=== PATIENT | male | born 1940 | race African-American/Black ===

== ENCOUNTER 2017-02-17 23:55 | Emergency (ER) | payer MEDICARE, OTHER ==
[~2017-02-17] VITALS: Ht 170.2 cm; Wt 81.0 kg
[~2017-02-17 23:55] MED LIST: ASPI-1035 PO; LORA0.5T2 PO
[2017-02-18] MEDS ORDERED: MORPHINE SULFATE 4 MG/ML CPJ (NOT FOR IM USE) IV ONE ×2 (00:30→02:15)
[2017-02-18] MEDS ORDERED: ONDANSETRON HCL 4MG/2ML VIAL IV ONE (00:30)
[2017-02-18 00:43] LABS: HEMATOCRIT. 27.8 % (42.0-52.0); HEMOGLOBIN. 8.9 g/dL (14.0-18.0); MEAN CORPUSCULAR HEMOGLOBIN 29.5 pg (28.0-32.0); MEAN CORPUSCULAR HGB CONC 31.9 g/dL (31.0-37.0); MEAN CORPUSCULAR VOLUME 92.5 fL (80.0-94.0); MEAN PLATELET VOLUME 7.3 fl (7.4-10.4); PLATELET 87 x1000/uL (130-400); RED CELL DISTRIBUTION WIDTH 17.3 % (11.6-14.6); WHITE BLOOD COUNT 7.3 x1000/uL (4.5-11.0)
[2017-02-18 00:47] LABS: CHLORIDE 104 mEq/L (98-107); DIFFERENTIAL COMMENT 1; INDEX HEMOLYSI 1 (1-3); INDEX ICTERIC 1 (1-4); INDEX LIPEMIC 1 (1-3)
[2017-02-18 00:52] LABS: ANION GAP 8; CALCIUM 8.4 mg/dL (8.5-10.1); CARBON DIOXIDE 32 mEq/L (21-32); UREA NITROGEN BLOOD 10 mg/dL (7-21); eGFR > 60 mL/min (>60)
[2017-02-18 01:06] LABS: PLATELET ESTIMATE DECREASED
[2017-02-18] MEDS ORDERED: OXYCODONE HCL/ACETAMINOPHEN 5/325MG TABLET PO ONE (01:15)
[2017-02-18 02:09] LABS: CLARITY URINE CLEAR (CLEAR); COLOR URINE YELLOW (YELLOW); GLUCOSE URINE NEGATIVE (NEGATIVE); KETONES URINE NEGATIVE (NEGATIVE); LEUKOCYTE ESTERASE URINE 2+ (NEGATIVE); NITRITE URINE NEGATIVE (NEGATIVE); OCCULT BLOOD URINE 3+ (NEGATIVE); PROTEIN URINE 3+ (NEGATIVE); SPECIFIC GRAVITY URINE 1.018 (1.005-1.030)
[2017-02-18 02:38] LABS: BACTERIA URINE 1+; RBC URINE TNTC /hpf (0-2); SQUAMOUS EPITHELIAL CELL URINE RARE /lpf (RARE/1+); WBC URINE 50-100 /hpf (0-2)
[2017-02-18 03:10] VITALS: BP 130/65
== END 2017-02-18 03:53 | disposition home or self-care (01) ==
LOC: ER 02-18 00:11
DX: R31.9 Hematuria, unspecified (principal); I10 Essential (primary) hypertension; C61 Malignant neoplasm of prostate; F17.200 Nicotine dependence, unspecified, uncomplicated; Z79.82 Long term (current) use of aspirin; Z85.46 Personal history of malignant neoplasm of prostate; Z87.442 Personal history of urinary calculi; Z96.642 Presence of left artificial hip joint
CPT/HCPCS: 36415; 80048; 81001; 85025; 96374; 96375; 96376; 99284; J2270; J2405; A4315

== ENCOUNTER 2017-04-19 00:23 | Inpatient (IN) | payer MEDICARE ==
[~2017-04-19] VITALS: Ht 165.1 cm; Wt 98.0 kg
[2017-04-19] VITALS (17 sets, daily range): BP systolic 139–193; BP diastolic 67–106
[~2017-04-19 00:23] MED LIST changes: -ASPI-1035 PO; +ASPI-1159 PO
[2017-04-19] MEDS ORDERED: METHYLPREDNISOLONE SOD SUCC 125 MG/2 ML VIAL IV STA (01:31)
[2017-04-19] MEDS ORDERED: ALBUTEROL (0.083%) 2.5MG/3ML NEB HHN STA ×2 (01:31→05:25)
[2017-04-19] MEDS ORDERED: ACETAMINOPHEN 325MG TABLET PO STA (01:31)
[2017-04-19] MEDS ORDERED: IPRATROPIUM BROMIDE (0.02%) 0.5MG/2.5ML NEB HHN STA ×2 (01:31→05:25)
[2017-04-19] MEDS ORDERED: PIPERACILLIN/TAZ 3.375G PREMIX 50 ML IV ONE (01:45)
[2017-04-19] MEDS ORDERED: VANCOMYCIN 1 G PREMIX 200 ML IV ONE (01:45)
[2017-04-19] MEDS ORDERED: MAGNESIUM 2 G PREMIX 50 ML IV ONE (01:45)
[2017-04-19] MEDS ORDERED: SODIUM CHLORIDE 0.9% 1000ML BAG (SEPSIS BOLUS) IV ONE (01:45)
[2017-04-19 02:38] LABS: GLUCOSE URINE NEGATIVE (NEGATIVE); KETONES URINE NEGATIVE (NEGATIVE); LEUKOCYTE ESTERASE URINE 1+ (NEGATIVE); NITRITE URINE NEGATIVE (NEGATIVE); OCCULT BLOOD URINE 3+ (NEGATIVE); PROTEIN URINE 4+ (NEGATIVE); SPECIFIC GRAVITY URINE 1.024 (1.005-1.030); UROBILINOGEN URINE 0.2 E.U./dL (0.2-1.0)
[2017-04-19 02:41] LABS: CLARITY URINE CLOUDY (CLEAR); COLOR URINE BLOODY (YELLOW)
[2017-04-19 02:51] LABS: INR 1.2; PROTHROMBIN TIME 12.9 sec
[2017-04-19 02:59] LABS: HEMATOCRIT. 23.1 % (42.0-52.0); HEMOGLOBIN. 7.2 g/dL (14.0-18.0); MEAN CORPUSCULAR HEMOGLOBIN 27.5 pg (28.0-32.0); MEAN CORPUSCULAR VOLUME 88.3 fL (80.0-94.0); MEAN PLATELET VOLUME 8.8 fl (7.4-10.4); PLATELET 112 x1000/uL (130-400); RED BLOOD CELL COUNT 2.61 mill/uL (4.7-6.1); RED CELL DISTRIBUTION WIDTH 16.2 % (11.6-14.6)
[2017-04-19 03:05] LABS: CARBON DIOXIDE 26 mEq/L (21-32); CHLORIDE 106 mEq/L (98-107); TROPONIN I 0.04 ng/mL (0.00-0.04)
[2017-04-19] MEDS ORDERED: IBUPROFEN 400MG TABLET PO ONE (04:45)
[2017-04-19] MEDS ORDERED: MORPHINE SULFATE 2 MG/ML CPJ (NOT FOR IM USE) IV ONE (05:00)
[2017-04-19 06:09] LABS: NUCLEATED RED BLOOD CELLS 1 /100 WBC
[2017-04-19 06:10] LABS: PLATELET ESTIMATE SLIGHTLY DECREASED
[2017-04-19] MEDS ORDERED: GUAIFENESIN 200MG/10ML SUGAR FREE UDC PO PRN (07:30)
[2017-04-19] MEDS ORDERED: NA PHOS,M-B/NA PHOS,DI-BA ENEMA 118ML PR PRN (07:30)
[2017-04-19] MEDS ORDERED: ACETAMINOPHEN 325MG TABLET PO PRN (07:30)
[2017-04-19] MEDS ORDERED: DOCUSATE SODIUM 100MG CAPSULE PO PRN (07:30)
[2017-04-19] MEDS: HYDROCODONE/ACETAMINOPHEN 10/325MG TABLET PO PRN (08:04)
[2017-04-19] MEDS: CLONIDINE 0.1MG TABLET PO PRN ×2 (08:04→17:14)
[2017-04-19 08:42] LABS: CARBON DIOXIDE 27 mEq/L (21-32); CHLORIDE 104 mEq/L (98-107)
[2017-04-19] MEDS ORDERED: LEVOFLOXACIN 500MG PREMIX 100 ML IV SCH (09:00)
[2017-04-19] MEDS: DEXT 5%/0.45% NACL 1000ML 1,000 ML IV SCH ×2 (10:52→18:39)
[2017-04-19] MEDS ORDERED: LORA0.5T2 PO (11:11)
[2017-04-19] MEDS ORDERED: MIRT15TA6 PO (11:13)
[2017-04-19] MEDS ORDERED: TEMA15CA PO (11:13)
[2017-04-19] MEDS ORDERED: BUPR8TAB3 SL (11:14)
[2017-04-19] MEDS ORDERED: SPIR25TA4 PO (11:17)
[2017-04-19] MEDS ORDERED: FURO20TA4 PO (11:17)
[2017-04-19] MEDS ORDERED: TRAM50TA73 PO (11:17)
[2017-04-19] MEDS: IPRATROPIUM/ALBUTEROL 0.5-3(2.5)MG/3ML NEB INH PRN ×2 (11:17→19:20)
[2017-04-19] MEDS ORDERED: DUTA0.5C2 PO (11:17)
[2017-04-19] MEDS ORDERED: FERR-63 PO (11:17)
[2017-04-19] MEDS: FERROUS SULFATE 325MG TABLET PO SCH (14:23)
[2017-04-19] MEDS: METRONIDAZOLE 500 MG PREMIX 100 ML IV SCH ×2 (14:23→21:16)
[2017-04-19] MEDS: HYDROMORPHONE HCL/PF 2MG/ML CPJ IV PRN ×2 (16:18→21:03)
[2017-04-19] MEDS ORDERED: FUROSEMIDE 20MG TABLET PO SCH (17:00)
[2017-04-19] MEDS: LORAZEPAM 2MG/ML CPJ IV PRN (17:14)
[2017-04-19] MEDS: MAGNESIUM/ALUMINUM HYDROXIDE/SIMETHICONE 30ML UDC PO PRN (17:14)
[2017-04-19] MEDS: AMLODIPINE 5MG TABLET PO SCH (19:13)
[2017-04-19] MEDS ORDERED: TEMAZEPAM 15MG CAPSULE PO PRN (21:00)
[2017-04-19] MEDS: DUTASTERIDE 0.5MG CAPSULE PO SCH (21:03)
[2017-04-19] MEDS: MIRTAZAPINE 15MG TABLET PO SCH (21:03)
[2017-04-19] MEDS: DIPHENHYDRAMINE 50MG/ML VIAL IV PRN (21:04)
[2017-04-19 23:25] LABS: CREATINE KINASE MB FRACTION 7.4 ng/mL (0.5-3.6); TROPONIN I 0.03 ng/mL (0.00-0.04)
[2017-04-20] VITALS (12 sets, daily range): BP systolic 131–168; BP diastolic 67–105
[2017-04-20] MEDS: LORAZEPAM 2MG/ML CPJ IV PRN ×3 (01:53→13:13)
[2017-04-20] MEDS: IPRATROPIUM/ALBUTEROL 0.5-3(2.5)MG/3ML NEB INH PRN ×3 (02:34→11:03)
[2017-04-20] MEDS: METRONIDAZOLE 500 MG PREMIX 100 ML IV SCH ×3 (05:08→22:45)
[2017-04-20] MEDS: HYDROMORPHONE HCL/PF 2MG/ML CPJ IV PRN ×2 (06:38→12:30)
[2017-04-20 07:05] LABS: HEMOGLOBIN. 8.8 g/dL (14.0-18.0); MEAN CORPUSCULAR HEMOGLOBIN 28.7 pg (28.0-32.0); MEAN CORPUSCULAR VOLUME 88.1 fL (80.0-94.0); MEAN PLATELET VOLUME 8.7 fl (7.4-10.4); PLATELET 90 x1000/uL (130-400); RED BLOOD CELL COUNT 3.06 mill/uL (4.7-6.1); RED CELL DISTRIBUTION WIDTH 15.9 % (11.6-14.6)
[2017-04-20 07:30] LABS: CARBON DIOXIDE 25 mEq/L (21-32); CHLORIDE 105 mEq/L (98-107); CREATINE KINASE 676 IU/L (39-308); HDL CHOLESTEROL 44 mg/dL (40-59); LDL CHOLESTEROL 36 mg/dL (5-100)
[2017-04-20 07:58] LABS: CREATINE KINASE MB FRACTION 7.6 ng/mL (0.5-3.6)
[2017-04-20] MEDS ORDERED: SPIRONOLACTONE 25MG TABLET PO SCH (09:00)
[2017-04-20] MEDS: FERROUS SULFATE 325MG TABLET PO SCH (09:13)
[2017-04-20] MEDS: AMLODIPINE 5MG TABLET PO SCH (09:13)
[2017-04-20] MEDS: LORAZEPAM 0.5MG TABLET PO SCH ×2 (09:13→17:13)
[2017-04-20 09:46] LABS: PLATELET ESTIMATE DECREASED
[2017-04-20] MEDS: LEVOFLOXACIN 500MG PREMIX 100 ML IV SCH (10:26)
[2017-04-20] MEDS ORDERED: PNEUMOCOCCAL 23-VAL P-SAC VAC 0.5 ML IM ONE (11:00)
[2017-04-20] MEDS ORDERED: IOHEXOL-350 100 ML BOTTLE ONE (11:25)
[2017-04-20] MEDS ORDERED: SODIUM CHLORIDE 0.9% 10ML VIAL ONE (11:25)
[2017-04-20] MEDS: GUAIFENESIN/CODEINE 200-20MG/10ML UDC PO PRN (17:13)
[2017-04-20] MEDS: MIRTAZAPINE 15MG TABLET PO SCH (20:36)
[2017-04-20] MEDS: DUTASTERIDE 0.5MG CAPSULE PO SCH (20:36)
[2017-04-20] MEDS: HYDROCODONE/ACETAMINOPHEN 10/325MG TABLET PO PRN (20:37)
[2017-04-20] MEDS: CLONIDINE 0.1MG TABLET PO PRN (20:39)
[2017-04-21] VITALS (11 sets, daily range): BP systolic 132–174; BP diastolic 69–114
[2017-04-21] MEDS: HYDROCODONE/ACETAMINOPHEN 10/325MG TABLET PO PRN ×5 (02:18→21:26)
[2017-04-21] MEDS: LORAZEPAM 2MG/ML CPJ IV PRN ×2 (02:20→23:15)
[2017-04-21] MEDS: CLONIDINE 0.1MG TABLET PO PRN ×2 (03:29→17:41)
[2017-04-21] MEDS: METRONIDAZOLE 500 MG PREMIX 100 ML IV SCH ×3 (05:30→22:09)
[2017-04-21] MEDS: GUAIFENESIN/CODEINE 200-20MG/10ML UDC PO PRN ×2 (05:50→21:01)
[2017-04-21 06:59] LABS: HEMOGLOBIN. 8.5 g/dL (14.0-18.0); MEAN CORPUSCULAR HEMOGLOBIN 28.5 pg (28.0-32.0); MEAN CORPUSCULAR VOLUME 90.5 fL (80.0-94.0); MEAN PLATELET VOLUME 8.6 fl (7.4-10.4); PLATELET 85 x1000/uL (130-400); RED BLOOD CELL COUNT 2.98 mill/uL (4.7-6.1); RED CELL DISTRIBUTION WIDTH 16.7 % (11.6-14.6)
[2017-04-21 07:21] LABS: CARBON DIOXIDE 25 mEq/L (21-32); CHLORIDE 106 mEq/L (98-107)
[2017-04-21] MEDS: LORAZEPAM 0.5MG TABLET PO SCH ×2 (08:36→17:31)
[2017-04-21] MEDS: AMLODIPINE 5MG TABLET PO SCH (08:38)
[2017-04-21] MEDS: FERROUS SULFATE 325MG TABLET PO SCH (08:39)
[2017-04-21] MEDS: LEVOFLOXACIN 500MG PREMIX 100 ML IV SCH (10:40)
[2017-04-21 13:42] LABS: NUCLEATED RED BLOOD CELLS 1 /100 WBC
[2017-04-21 13:43] LABS: PLATELET ESTIMATE DECREASED
[2017-04-21] MEDS: IPRATROPIUM/ALBUTEROL 0.5-3(2.5)MG/3ML NEB INH PRN (15:46)
[2017-04-21] MEDS: DUTASTERIDE 0.5MG CAPSULE PO SCH (20:56)
[2017-04-21] MEDS: MIRTAZAPINE 15MG TABLET PO SCH (20:56)
[2017-04-21] MEDS: DIPHENHYDRAMINE 50MG/ML VIAL IV PRN (23:14)
[2017-04-22] VITALS (11 sets, daily range): BP systolic 112–185; BP diastolic 33–93
[2017-04-22 05:59] LABS: CARBON DIOXIDE 26 mEq/L (21-32); CHLORIDE 105 mEq/L (98-107)
[2017-04-22] MEDS: METRONIDAZOLE 500 MG PREMIX 100 ML IV SCH ×2 (06:01→15:09)
[2017-04-22 07:04] LABS: HEMATOCRIT. 26.9 % (42.0-52.0); HEMOGLOBIN. 8.6 g/dL (14.0-18.0); MEAN CORPUSCULAR HEMOGLOBIN 28.8 pg (28.0-32.0); MEAN CORPUSCULAR VOLUME 90.3 fL (80.0-94.0); MEAN PLATELET VOLUME 8.1 fl (7.4-10.4); PLATELET 87 x1000/uL (130-400); RED BLOOD CELL COUNT 2.98 mill/uL (4.7-6.1)
[2017-04-22] MEDS ORDERED: SKIN ADHESIVE 0.7 GM EA TOP ONE (07:54)
[2017-04-22] MEDS ORDERED: BUPIVACAINE HCL/PF 0.25% (2.5MG/ML) 10ML ONE (07:54)
[2017-04-22] MEDS ORDERED: BACITRACIN ZINC 15GM TUBE TOP ONE (07:54)
[2017-04-22] MEDS: LORAZEPAM 0.5MG TABLET PO SCH ×2 (08:18→17:41)
[2017-04-22] MEDS: FERROUS SULFATE 325MG TABLET PO SCH (08:18)
[2017-04-22] MEDS: AMLODIPINE 5MG TABLET PO SCH (08:18)
[2017-04-22] MEDS: IPRATROPIUM/ALBUTEROL 0.5-3(2.5)MG/3ML NEB INH PRN (09:12)
[2017-04-22] MEDS: HYDROCODONE/ACETAMINOPHEN 10/325MG TABLET PO PRN ×2 (10:22→15:08)
[2017-04-22 12:11] LABS: PLATELET ESTIMATE DECREASED
[2017-04-22] MEDS: CLONIDINE 0.1MG TABLET PO PRN (15:08)
[2017-04-22] MEDS: LEVOFLOXACIN 500MG PREMIX 100 ML IV SCH (15:09)
[2017-04-22] MEDS ORDERED: GUAIFENESIN 200MG/10ML SUGAR FREE UDC PO PRN (15:15)
[2017-04-22] MEDS: AMPICILLIN 2,000 MG in SODIUM CHLORIDE 0.9% 100 ML IV SCH (17:41)
[2017-04-22] MEDS: FUROSEMIDE 20MG/2ML VIAL IVP SCH (17:41)
[2017-04-22] MEDS: PANTOPRAZOLE 40MG DR TABLET PO SCH (17:41)
[2017-04-22] MEDS: DUTASTERIDE 0.5MG CAPSULE PO SCH (20:05)
[2017-04-22] MEDS: GUAIFENESIN/CODEINE 200-20MG/10ML UDC PO PRN (20:05)
[2017-04-22] MEDS: MIRTAZAPINE 15MG TABLET PO SCH (20:07)
[2017-04-22] MEDS: IPRATROPIUM/ALBUTEROL 0.5-3(2.5)MG/3ML NEB HHN SCH (20:33)
[2017-04-22] MEDS: HYDROMORPHONE HCL/PF 2MG/ML CPJ IV PRN (21:26)
[2017-04-23] VITALS (11 sets, daily range): BP systolic 124–174; BP diastolic 64–102
[2017-04-23] MEDS: HYDROMORPHONE HCL/PF 2MG/ML CPJ IV PRN (00:23)
[2017-04-23] MEDS: BUDESONIDE 0.5MG/2ML NEB HHN SCH ×3 (02:35→20:08)
[2017-04-23] MEDS: IPRATROPIUM/ALBUTEROL 0.5-3(2.5)MG/3ML NEB HHN SCH ×6 (02:36→20:08)
[2017-04-23] MEDS: AMPICILLIN 2,000 MG in SODIUM CHLORIDE 0.9% 100 ML IV SCH ×5 (02:43→23:59)
[2017-04-23] MEDS: CLONIDINE 0.1MG TABLET PO PRN (03:33)
[2017-04-23] MEDS: LORAZEPAM 2MG/ML CPJ IV PRN (05:06)
[2017-04-23] MEDS: PANTOPRAZOLE 40MG DR TABLET PO SCH (06:52)
[2017-04-23 08:27] LABS: HEMATOCRIT. 25.1 % (42.0-52.0); HEMOGLOBIN. 7.9 g/dL (14.0-18.0); MEAN CORPUSCULAR HEMOGLOBIN 28.2 pg (28.0-32.0); MEAN CORPUSCULAR VOLUME 90.1 fL (80.0-94.0); MEAN PLATELET VOLUME 8.4 fl (7.4-10.4); PLATELET 100 x1000/uL (130-400); RED BLOOD CELL COUNT 2.79 mill/uL (4.7-6.1); RED CELL DISTRIBUTION WIDTH 16.4 % (11.6-14.6)
[2017-04-23] MEDS: FUROSEMIDE 20MG/2ML VIAL IVP SCH (08:32)
[2017-04-23] MEDS: FERROUS SULFATE 325MG TABLET PO SCH (08:33)
[2017-04-23] MEDS: LORAZEPAM 0.5MG TABLET PO SCH ×2 (08:33→16:50)
[2017-04-23] MEDS: AMLODIPINE 5MG TABLET PO SCH (08:33)
[2017-04-23] MEDS: HYDROCODONE/ACETAMINOPHEN 10/325MG TABLET PO PRN ×2 (08:34→20:02)
[2017-04-23] MEDS: AMINOCAPROIC ACID IV SCH ×4 (09:00→20:14)
[2017-04-23] MEDS: WATER IV SCH ×4 (09:00→20:14)
[2017-04-23] MEDS: DEXTROSE 5% IV SCH ×4 (09:00→20:14)
[2017-04-23 10:15] LABS: PLATELET ESTIMATE DECREASED
[2017-04-23] MEDS ORDERED: MORPHINE SULFATE 4 MG/ML CPJ (NOT FOR IM USE) IV PRN (11:30)
[2017-04-23] MEDS: ONDANSETRON HCL 4MG/2ML VIAL IV PRN (11:46)
[2017-04-23] MEDS ORDERED: FUROSEMIDE 20MG/2ML VIAL IVP NR (11:50)
[2017-04-23 14:23] LABS: HEPATITIS B SURFACE ANTIGEN NEGATIVE
[2017-04-23 14:45] LABS: HEPATITIS B CORE AB IGM NEGATIVE
[2017-04-23 14:46] LABS: HEPATITIS A AB IGM NEGATIVE (NEGATIVE)
[2017-04-23] MEDS: MORPHINE SULFATE 4 MG/ML CPJ (NOT FOR IM USE) IV PRN ×3 (16:41→23:59)
[2017-04-23] MEDS: MIRTAZAPINE 15MG TABLET PO SCH (20:14)
[2017-04-23] MEDS: DUTASTERIDE 0.5MG CAPSULE PO SCH (20:14)
[2017-04-24] VITALS (12 sets, daily range): BP systolic 132–169; BP diastolic 64–99
[2017-04-24] MEDS: IPRATROPIUM/ALBUTEROL 0.5-3(2.5)MG/3ML NEB HHN SCH ×7 (00:43→23:31)
[2017-04-24] MEDS: WATER IV SCH ×6 (01:06→20:25)
[2017-04-24] MEDS: DEXTROSE 5% IV SCH ×6 (01:06→20:25)
[2017-04-24] MEDS: AMINOCAPROIC ACID IV SCH ×6 (01:06→20:25)
[2017-04-24] MEDS: BISACODYL 5MG TABLET PO PRN (03:22)
[2017-04-24] MEDS: HYDROCODONE/ACETAMINOPHEN 10/325MG TABLET PO PRN (03:22)
[2017-04-24] MEDS: LORAZEPAM 2MG/ML CPJ IV PRN (03:31)
[2017-04-24] MEDS: AMPICILLIN 2,000 MG in SODIUM CHLORIDE 0.9% 100 ML IV SCH ×3 (06:17→16:20)
[2017-04-24 06:30] LABS: HEMATOCRIT. 24.6 % (42.0-52.0); HEMOGLOBIN. 7.7 g/dL (14.0-18.0); MEAN CORPUSCULAR HEMOGLOBIN 28.2 pg (28.0-32.0); MEAN CORPUSCULAR VOLUME 90.4 fL (80.0-94.0); MEAN PLATELET VOLUME 8.5 fl (7.4-10.4); PLATELET 105 x1000/uL (130-400); RED BLOOD CELL COUNT 2.73 mill/uL (4.7-6.1); RED CELL DISTRIBUTION WIDTH 17.3 % (11.6-14.6)
[2017-04-24] MEDS: MORPHINE SULFATE 4 MG/ML CPJ (NOT FOR IM USE) IV PRN ×3 (07:03→20:25)
[2017-04-24] MEDS: BUDESONIDE 0.5MG/2ML NEB HHN SCH ×2 (07:53→19:54)
[2017-04-24] MEDS: PANTOPRAZOLE 40MG DR TABLET PO SCH ×2 (08:10→08:27)
[2017-04-24] MEDS: FERROUS SULFATE 325MG TABLET PO SCH (08:26)
[2017-04-24] MEDS: DOCUSATE SODIUM 250MG CAPSULE PO SCH (08:26)
[2017-04-24] MEDS: AMLODIPINE 5MG TABLET PO SCH (08:27)
[2017-04-24] MEDS: LORAZEPAM 0.5MG TABLET PO SCH ×2 (08:27→16:20)
[2017-04-24] MEDS: FUROSEMIDE 20MG/2ML VIAL IVP SCH (08:28)
[2017-04-24] MEDS: SPIRONOLACTONE 25MG TABLET PO SCH (08:28)
[2017-04-24] MEDS ORDERED: FUROSEMIDE 40MG/4ML VIAL IVP SCH (09:00)
[2017-04-24 11:02] LABS: INR 1.3; PROTHROMBIN TIME 13.9 sec
[2017-04-24] MEDS ORDERED: LIDOCAINE HCL 1% 20ML VIAL (Pyxis) INJ ONE (11:19)
[2017-04-24] MEDS ORDERED: SODIUM BICARBONATE 4% (2.4MEQ) 5ML VIAL IV ONE (11:19)
[2017-04-24 13:27] LABS: PLATELET ESTIMATE SLIGHTLY DECREASED
[2017-04-24] MEDS: MIRTAZAPINE 15MG TABLET PO SCH (20:24)
[2017-04-24] MEDS: DUTASTERIDE 0.5MG CAPSULE PO SCH (20:24)
[2017-04-25] VITALS (16 sets, daily range): BP systolic 133–177; BP diastolic 55–88
[2017-04-25] MEDS: AMPICILLIN 2,000 MG in SODIUM CHLORIDE 0.9% 100 ML IV SCH ×4 (00:15→18:42)
[2017-04-25] MEDS: MORPHINE SULFATE 4 MG/ML CPJ (NOT FOR IM USE) IV PRN ×5 (00:27→20:24)
[2017-04-25] MEDS: WATER IV SCH ×2 (02:02→04:02)
[2017-04-25] MEDS: AMINOCAPROIC ACID IV SCH ×2 (02:02→04:02)
[2017-04-25] MEDS: DEXTROSE 5% IV SCH ×2 (02:02→04:02)
[2017-04-25] MEDS: DIPHENHYDRAMINE 50MG/ML VIAL IV PRN ×4 (04:02→20:34)
[2017-04-25] MEDS: IPRATROPIUM/ALBUTEROL 0.5-3(2.5)MG/3ML NEB HHN SCH ×5 (04:10→20:28)
[2017-04-25] MEDS: FUROSEMIDE 20MG/2ML VIAL IVP SCH (08:45)
[2017-04-25] MEDS: DOCUSATE SODIUM 250MG CAPSULE PO SCH (08:45)
[2017-04-25] MEDS: AMLODIPINE 5MG TABLET PO SCH (08:45)
[2017-04-25] MEDS: FERROUS SULFATE 325MG TABLET PO SCH (08:45)
[2017-04-25] MEDS: LORAZEPAM 0.5MG TABLET PO SCH (08:45)
[2017-04-25] MEDS: SPIRONOLACTONE 25MG TABLET PO SCH (08:45)
[2017-04-25] MEDS: BUDESONIDE 0.5MG/2ML NEB HHN SCH ×2 (09:39→20:29)
[2017-04-25] MEDS: PANTOPRAZOLE 40MG DR TABLET PO SCH (10:07)
[2017-04-25 18:49] LABS: HEMATOCRIT. 27.1 % (42.0-52.0); HEMOGLOBIN. 8.6 g/dL (14.0-18.0); MEAN CORPUSCULAR HEMOGLOBIN 28.5 pg (28.0-32.0); MEAN CORPUSCULAR VOLUME 89.3 fL (80.0-94.0); MEAN PLATELET VOLUME 8.3 fl (7.4-10.4); PLATELET 119 x1000/uL (130-400); RED BLOOD CELL COUNT 3.03 mill/uL (4.7-6.1); RED CELL DISTRIBUTION WIDTH 19.8 % (11.6-14.6)
[2017-04-25 18:59] LABS: PLATELET ESTIMATE NORMAL
[2017-04-25] MEDS: MIRTAZAPINE 15MG TABLET PO SCH (20:22)
[2017-04-25] MEDS: DUTASTERIDE 0.5MG CAPSULE PO SCH (20:23)
[2017-04-25] MEDS: CLONIDINE 0.1MG TABLET PO PRN (22:11)
[2017-04-26] VITALS (21 sets, daily range): BP systolic 112–164; BP diastolic 61–106
[2017-04-26] MEDS: AMPICILLIN 2,000 MG in SODIUM CHLORIDE 0.9% 100 ML IV SCH ×4 (00:19→17:32)
[2017-04-26] MEDS: MORPHINE SULFATE 4 MG/ML CPJ (NOT FOR IM USE) IV PRN ×6 (00:27→21:51)
[2017-04-26] MEDS: TEMAZEPAM 15MG CAPSULE PO PRN (00:30)
[2017-04-26] MEDS: IPRATROPIUM/ALBUTEROL 0.5-3(2.5)MG/3ML NEB HHN SCH ×6 (00:43→20:11)
[2017-04-26] MEDS: DIPHENHYDRAMINE 50MG/ML VIAL IV PRN ×5 (05:37→21:51)
[2017-04-26 06:31] LABS: HEMATOCRIT. 26.1 % (42.0-52.0); HEMOGLOBIN. 8.3 g/dL (14.0-18.0); MEAN CORPUSCULAR HEMOGLOBIN 28.2 pg (28.0-32.0); MEAN CORPUSCULAR VOLUME 88.8 fL (80.0-94.0); MEAN PLATELET VOLUME 7.8 fl (7.4-10.4); PLATELET 111 x1000/uL (130-400); RED BLOOD CELL COUNT 2.94 mill/uL (4.7-6.1); RED CELL DISTRIBUTION WIDTH 19.8 % (11.6-14.6)
[2017-04-26 07:11] LABS: CARBON DIOXIDE 22 mEq/L (21-32); CHLORIDE 100 mEq/L (98-107)
[2017-04-26] MEDS: FUROSEMIDE 20MG/2ML VIAL IVP SCH (08:36)
[2017-04-26] MEDS: FERROUS SULFATE 325MG TABLET PO SCH (08:36)
[2017-04-26] MEDS: AMLODIPINE 5MG TABLET PO SCH (08:37)
[2017-04-26] MEDS: SPIRONOLACTONE 25MG TABLET PO SCH (09:25)
[2017-04-26] MEDS: DOCUSATE SODIUM 250MG CAPSULE PO SCH (09:25)
[2017-04-26 09:36] LABS: PLATELET ESTIMATE NORMAL
[2017-04-26] MEDS: LORAZEPAM 0.5MG TABLET PO SCH ×2 (09:37→21:50)
[2017-04-26] MEDS: MAGNESIUM/ALUMINUM HYDROXIDE/SIMETHICONE 30ML UDC PO PRN (17:35)
[2017-04-26] MEDS: DUTASTERIDE 0.5MG CAPSULE PO SCH (21:50)
[2017-04-26] MEDS: MIRTAZAPINE 15MG TABLET PO SCH (21:55)
[2017-04-27] VITALS (19 sets, daily range): BP systolic 128–167; BP diastolic 67–88
[2017-04-27] MEDS: AMPICILLIN 2,000 MG in SODIUM CHLORIDE 0.9% 100 ML IV SCH ×4 (00:55→22:04)
[2017-04-27] MEDS: DIPHENHYDRAMINE 50MG/ML VIAL IV PRN ×4 (02:40→19:55)
[2017-04-27] MEDS: MORPHINE SULFATE 4 MG/ML CPJ (NOT FOR IM USE) IV PRN ×5 (02:41→23:50)
[2017-04-27] MEDS: IPRATROPIUM/ALBUTEROL 0.5-3(2.5)MG/3ML NEB HHN SCH ×5 (04:00→21:18)
[2017-04-27 06:47] LABS: HEMATOCRIT. 27.4 % (42.0-52.0); HEMOGLOBIN. 8.6 g/dL (14.0-18.0); MEAN CORPUSCULAR HEMOGLOBIN 28.3 pg (28.0-32.0); MEAN CORPUSCULAR VOLUME 89.8 fL (80.0-94.0); MEAN PLATELET VOLUME 8.2 fl (7.4-10.4); PLATELET 121 x1000/uL (130-400); RED BLOOD CELL COUNT 3.05 mill/uL (4.7-6.1); RED CELL DISTRIBUTION WIDTH 19.9 % (11.6-14.6)
[2017-04-27] MEDS: PANTOPRAZOLE 40MG DR TABLET PO SCH (07:01)
[2017-04-27 08:11] LABS: CARBON DIOXIDE 22 mEq/L (21-32); CHLORIDE 100 mEq/L (98-107)
[2017-04-27] MEDS: LORAZEPAM 0.5MG TABLET PO SCH ×2 (08:46→20:39)
[2017-04-27] MEDS: FERROUS SULFATE 325MG TABLET PO SCH (08:46)
[2017-04-27] MEDS: AMLODIPINE 5MG TABLET PO SCH (08:46)
[2017-04-27] MEDS: FUROSEMIDE 20MG/2ML VIAL IVP SCH (08:46)
[2017-04-27] MEDS: SPIRONOLACTONE 25MG TABLET PO SCH (08:46)
[2017-04-27] MEDS: DOCUSATE SODIUM 250MG CAPSULE PO SCH (08:46)
[2017-04-27] MEDS ORDERED: ALBUMIN HUMAN 25GM/100ML (25%) IV ONE (09:45)
[2017-04-27] MEDS: ALBUMIN HUMAN 12.5GM/50ML (25%) IV SCH ×2 (11:57→20:02)
[2017-04-27 13:01] LABS: PLATELET ESTIMATE SLIGHTLY DECREASED
[2017-04-27] MEDS: MAGNESIUM/ALUMINUM HYDROXIDE/SIMETHICONE 30ML UDC PO PRN (17:41)
[2017-04-27] MEDS: DUTASTERIDE 0.5MG CAPSULE PO SCH (20:39)
[2017-04-27] MEDS: MIRTAZAPINE 15MG TABLET PO SCH (20:39)
[2017-04-27] MEDS: TEMAZEPAM 15MG CAPSULE PO PRN (22:04)
[2017-04-28] VITALS (25 sets, daily range): BP systolic 115–164; BP diastolic 19–113
[2017-04-28] MEDS: IPRATROPIUM/ALBUTEROL 0.5-3(2.5)MG/3ML NEB HHN SCH ×4 (01:06→21:32)
[2017-04-28] MEDS: ALBUMIN HUMAN 12.5GM/50ML (25%) IV SCH (03:37)
[2017-04-28] MEDS: MORPHINE SULFATE 4 MG/ML CPJ (NOT FOR IM USE) IV PRN ×5 (03:51→20:23)
[2017-04-28] MEDS: AMPICILLIN 2,000 MG in SODIUM CHLORIDE 0.9% 100 ML IV SCH ×3 (05:20→21:39)
[2017-04-28] MEDS: DIPHENHYDRAMINE 50MG/ML VIAL IV PRN ×4 (06:27→20:23)
[2017-04-28] MEDS: ONDANSETRON HCL 4MG/2ML VIAL IV PRN ×2 (06:27→13:50)
[2017-04-28] MEDS: GUAIFENESIN/CODEINE 200-20MG/10ML UDC PO PRN (06:28)
[2017-04-28 06:36] LABS: MEAN CORPUSCULAR HEMOGLOBIN 28.5 pg (28.0-32.0); MEAN CORPUSCULAR VOLUME 89.8 fL (80.0-94.0); MEAN PLATELET VOLUME 7.7 fl (7.4-10.4); PLATELET 87 x1000/uL (130-400); RED BLOOD CELL COUNT 2.29 mill/uL (4.7-6.1); RED CELL DISTRIBUTION WIDTH 20.4 % (11.6-14.6)
[2017-04-28 07:38] LABS: CARBON DIOXIDE 22 mEq/L (21-32); CHLORIDE 104 mEq/L (98-107)
[2017-04-28] MEDS: PANTOPRAZOLE 40MG DR TABLET PO SCH (07:55)
[2017-04-28] MEDS: FUROSEMIDE 20MG/2ML VIAL IVP SCH (09:00)
[2017-04-28 09:03] LABS: HEMATOCRIT. 20.6 % (42.0-52.0); HEMOGLOBIN. 6.5 g/dL (14.0-18.0)
[2017-04-28] MEDS: SPIRONOLACTONE 25MG TABLET PO SCH (09:18)
[2017-04-28] MEDS: FERROUS SULFATE 325MG TABLET PO SCH (09:18)
[2017-04-28] MEDS: LORAZEPAM 0.5MG TABLET PO SCH ×2 (09:18→20:23)
[2017-04-28] MEDS: DOCUSATE SODIUM 250MG CAPSULE PO SCH (09:18)
[2017-04-28] MEDS: AMLODIPINE 5MG TABLET PO SCH (09:18)
[2017-04-28 12:38] LABS: INR 1.5; PROTHROMBIN TIME 15.6 sec
[2017-04-28] MEDS ORDERED: SODIUM BICARBONATE 4% (2.4MEQ) 5ML VIAL IV ONE (14:20)
[2017-04-28] MEDS ORDERED: LIDOCAINE HCL 1% 20ML VIAL (Pyxis) INJ ONE (14:20)
[2017-04-28 19:01] LABS: PLATELET ESTIMATE DECREASED
[2017-04-28] MEDS: DUTASTERIDE 0.5MG CAPSULE PO SCH (20:23)
[2017-04-28] MEDS: MIRTAZAPINE 15MG TABLET PO SCH (20:23)
[2017-04-29] VITALS (16 sets, daily range): BP systolic 115–152; BP diastolic 66–90
[2017-04-29] MEDS: MORPHINE SULFATE 4 MG/ML CPJ (NOT FOR IM USE) IV PRN ×6 (00:30→23:10)
[2017-04-29] MEDS: DIPHENHYDRAMINE 50MG/ML VIAL IV PRN ×4 (00:34→23:09)
[2017-04-29] MEDS: IPRATROPIUM/ALBUTEROL 0.5-3(2.5)MG/3ML NEB HHN SCH ×4 (02:00→20:51)
[2017-04-29 06:36] LABS: AMMONIA 64 uMol/L (<32)
[2017-04-29 06:41] LABS: HEMATOCRIT. 29.8 % (42.0-52.0); HEMOGLOBIN. 9.6 g/dL (14.0-18.0); MEAN CORPUSCULAR HEMOGLOBIN 28.2 pg (28.0-32.0); MEAN CORPUSCULAR VOLUME 87.7 fL (80.0-94.0); MEAN PLATELET VOLUME 7.9 fl (7.4-10.4); PLATELET 87 x1000/uL (130-400); RED CELL DISTRIBUTION WIDTH 18.8 % (11.6-14.6)
[2017-04-29] MEDS: AMPICILLIN 2,000 MG in SODIUM CHLORIDE 0.9% 100 ML IV SCH ×2 (06:58→13:31)
[2017-04-29] MEDS: PANTOPRAZOLE 40MG DR TABLET PO SCH (06:58)
[2017-04-29 08:02] LABS: CARBON DIOXIDE 22 mEq/L (21-32); CHLORIDE 98 mEq/L (98-107)
[2017-04-29] MEDS: FUROSEMIDE 20MG/2ML VIAL IVP SCH (08:30)
[2017-04-29] MEDS: FERROUS SULFATE 325MG TABLET PO SCH (08:31)
[2017-04-29] MEDS: AMLODIPINE 5MG TABLET PO SCH (08:32)
[2017-04-29] MEDS: LORAZEPAM 0.5MG TABLET PO SCH ×2 (08:33→21:22)
[2017-04-29] MEDS: SPIRONOLACTONE 25MG TABLET PO SCH (08:33)
[2017-04-29] MEDS: DOCUSATE SODIUM 250MG CAPSULE PO SCH (08:33)
[2017-04-29] MEDS: GUAIFENESIN/CODEINE 200-20MG/10ML UDC PO PRN ×2 (12:44→21:29)
[2017-04-29] MEDS: MAGNESIUM/ALUMINUM HYDROXIDE/SIMETHICONE 30ML UDC PO PRN (12:44)
[2017-04-29] MEDS: ONDANSETRON HCL 4MG/2ML VIAL IV PRN (13:40)
[2017-04-29 14:36] LABS: PLATELET ESTIMATE DECREASED
[2017-04-29] MEDS: TEMAZEPAM 15MG CAPSULE PO PRN (21:22)
[2017-04-29] MEDS: DUTASTERIDE 0.5MG CAPSULE PO SCH (21:22)
[2017-04-29] MEDS: MIRTAZAPINE 15MG TABLET PO SCH (21:22)
[2017-04-30] VITALS (13 sets, daily range): BP systolic 122–165; BP diastolic 64–96
[2017-04-30] MEDS: IPRATROPIUM/ALBUTEROL 0.5-3(2.5)MG/3ML NEB HHN SCH ×4 (01:51→21:17)
[2017-04-30] MEDS: MORPHINE SULFATE 4 MG/ML CPJ (NOT FOR IM USE) IV PRN ×4 (03:15→14:07)
[2017-04-30] MEDS: DIPHENHYDRAMINE 50MG/ML VIAL IV PRN ×4 (03:15→20:28)
[2017-04-30] MEDS: PANTOPRAZOLE 40MG DR TABLET PO SCH (05:49)
[2017-04-30] MEDS: FUROSEMIDE 20MG/2ML VIAL IVP SCH (09:34)
[2017-04-30] MEDS: DOCUSATE SODIUM 250MG CAPSULE PO SCH (09:35)
[2017-04-30] MEDS: FERROUS SULFATE 325MG TABLET PO SCH (09:35)
[2017-04-30] MEDS: LORAZEPAM 0.5MG TABLET PO SCH ×2 (09:35→20:19)
[2017-04-30] MEDS: SPIRONOLACTONE 25MG TABLET PO SCH (09:36)
[2017-04-30] MEDS: AMLODIPINE 5MG TABLET PO SCH (09:36)
[2017-04-30] MEDS: GUAIFENESIN/CODEINE 200-20MG/10ML UDC PO PRN ×2 (09:44→20:52)
[2017-04-30 11:46] LABS: HEMATOCRIT. 29.4 % (42.0-52.0); HEMOGLOBIN. 9.4 g/dL (14.0-18.0); MEAN CORPUSCULAR HEMOGLOBIN 28.5 pg (28.0-32.0); MEAN PLATELET VOLUME 7.8 fl (7.4-10.4); PLATELET 81 x1000/uL (130-400); RED CELL DISTRIBUTION WIDTH 19.6 % (11.6-14.6)
[2017-04-30 13:08] LABS: PLATELET ESTIMATE SLIGHTLY DECREASED
[2017-04-30] MEDS: MORPHINE SULFATE 2 MG/ML CPJ (NOT FOR IM USE) IV PRN ×2 (15:16→20:26)
[2017-04-30] MEDS: DUTASTERIDE 0.5MG CAPSULE PO SCH (20:19)
[2017-04-30] MEDS: MIRTAZAPINE 15MG TABLET PO SCH (20:19)
[2017-04-30] MEDS: AMPICILLIN 2,000 MG in SODIUM CHLORIDE 0.9% 100 ML IV SCH (21:27)
[2017-04-30] MEDS ORDERED: LACTULOSE 20G/30ML UDC PO PRN (22:00)
[2017-05-01] VITALS (12 sets, daily range): BP systolic 124–158; BP diastolic 68–93
[2017-05-01] MEDS: GUAIFENESIN/CODEINE 200-20MG/10ML UDC PO PRN ×4 (00:41→18:04)
[2017-05-01] MEDS: DIPHENHYDRAMINE 50MG/ML VIAL IV PRN ×6 (00:41→21:57)
[2017-05-01] MEDS: MORPHINE SULFATE 2 MG/ML CPJ (NOT FOR IM USE) IV PRN ×6 (00:42→21:59)
[2017-05-01] MEDS: IPRATROPIUM/ALBUTEROL 0.5-3(2.5)MG/3ML NEB HHN SCH ×4 (02:18→21:26)
[2017-05-01] MEDS: ONDANSETRON HCL 4MG/2ML VIAL IV PRN (03:58)
[2017-05-01] MEDS: AMPICILLIN 2,000 MG in SODIUM CHLORIDE 0.9% 100 ML IV SCH ×3 (06:03→21:58)
[2017-05-01] MEDS: PANTOPRAZOLE 40MG DR TABLET PO SCH (09:00)
[2017-05-01 09:21] LABS: HEMATOCRIT. 29.6 % (42.0-52.0); HEMOGLOBIN. 9.4 g/dL (14.0-18.0); MEAN CORPUSCULAR HEMOGLOBIN 28.3 pg (28.0-32.0); MEAN CORPUSCULAR VOLUME 89.7 fL (80.0-94.0); MEAN PLATELET VOLUME 8.2 fl (7.4-10.4); PLATELET 80 x1000/uL (130-400); RED CELL DISTRIBUTION WIDTH 19.9 % (11.6-14.6)
[2017-05-01] MEDS: FUROSEMIDE 20MG/2ML VIAL IVP SCH (09:50)
[2017-05-01] MEDS: FERROUS SULFATE 325MG TABLET PO SCH (09:51)
[2017-05-01] MEDS: AMLODIPINE 5MG TABLET PO SCH (09:51)
[2017-05-01] MEDS: SPIRONOLACTONE 25MG TABLET PO SCH (09:51)
[2017-05-01] MEDS: DOCUSATE SODIUM 250MG CAPSULE PO SCH (09:51)
[2017-05-01] MEDS: LORAZEPAM 0.5MG TABLET PO SCH (09:51)
[2017-05-01] MEDS: LACTULOSE 20G/30ML UDC PO SCH ×2 (12:44→18:04)
[2017-05-01 17:35] LABS: PLATELET ESTIMATE DECREASED
[2017-05-01] MEDS: BISACODYL 5MG TABLET PO PRN (18:04)
[2017-05-01] MEDS: DUTASTERIDE 0.5MG CAPSULE PO SCH (21:57)
[2017-05-01] MEDS: MIRTAZAPINE 15MG TABLET PO SCH (21:57)
[2017-05-02] VITALS (11 sets, daily range): BP systolic 126–160; BP diastolic 68–98
[2017-05-02] MEDS: IPRATROPIUM/ALBUTEROL 0.5-3(2.5)MG/3ML NEB HHN SCH ×4 (01:04→20:52)
[2017-05-02] MEDS: GUAIFENESIN/CODEINE 200-20MG/10ML UDC PO PRN ×4 (01:08→23:56)
[2017-05-02] MEDS: DIPHENHYDRAMINE 50MG/ML VIAL IV PRN ×6 (02:02→23:55)
[2017-05-02] MEDS: MORPHINE SULFATE 2 MG/ML CPJ (NOT FOR IM USE) IV PRN (02:02)
[2017-05-02] MEDS: AMPICILLIN 2,000 MG in SODIUM CHLORIDE 0.9% 100 ML IV SCH ×3 (06:35→21:24)
[2017-05-02] MEDS: MORPHINE SULFATE 4 MG/ML CPJ (NOT FOR IM USE) IV PRN ×5 (06:39→23:55)
[2017-05-02] MEDS: LACTULOSE 20G/30ML UDC PO SCH ×2 (06:44→17:49)
[2017-05-02 06:49] LABS: HEMATOCRIT. 27.7 % (42.0-52.0); HEMOGLOBIN. 8.8 g/dL (14.0-18.0); MEAN CORPUSCULAR HEMOGLOBIN 28.4 pg (28.0-32.0); MEAN CORPUSCULAR VOLUME 89.8 fL (80.0-94.0); MEAN PLATELET VOLUME 8.6 fl (7.4-10.4); PLATELET 71 x1000/uL (130-400); RED BLOOD CELL COUNT 3.09 mill/uL (4.7-6.1); RED CELL DISTRIBUTION WIDTH 19.5 % (11.6-14.6)
[2017-05-02 07:23] LABS: AMMONIA 76 uMol/L (<32)
[2017-05-02] MEDS: PANTOPRAZOLE 40MG DR TABLET PO SCH (08:29)
[2017-05-02] MEDS: FUROSEMIDE 20MG/2ML VIAL IVP SCH ×2 (08:30→17:50)
[2017-05-02] MEDS: FERROUS SULFATE 325MG TABLET PO SCH (08:30)
[2017-05-02] MEDS: SPIRONOLACTONE 25MG TABLET PO SCH (08:30)
[2017-05-02] MEDS: DOCUSATE SODIUM 250MG CAPSULE PO SCH (08:30)
[2017-05-02] MEDS: AMLODIPINE 5MG TABLET PO SCH (08:30)
[2017-05-02 10:12] LABS: PLATELET ESTIMATE DECREASED
[2017-05-02 17:18] LABS: IMMUNOGLOBULIN A 947 mg/dL (61-437); IMMUNOGLOBULIN G 1913 mg/dL (700-1600); IMMUNOGLOBULIN M 41 mg/dL (15-143)
[2017-05-02] MEDS: MIRTAZAPINE 15MG TABLET PO SCH (21:24)
[2017-05-02] MEDS: DUTASTERIDE 0.5MG CAPSULE PO SCH (21:25)
[2017-05-03] VITALS (15 sets, daily range): BP systolic 132–162; BP diastolic 74–93
[2017-05-03] MEDS: IPRATROPIUM/ALBUTEROL 0.5-3(2.5)MG/3ML NEB HHN SCH ×5 (01:26→20:19)
[2017-05-03] MEDS: MORPHINE SULFATE 4 MG/ML CPJ (NOT FOR IM USE) IV PRN ×5 (04:23→20:40)
[2017-05-03] MEDS: DIPHENHYDRAMINE 50MG/ML VIAL IV PRN ×4 (04:23→20:38)
[2017-05-03] MEDS: AMPICILLIN 2,000 MG in SODIUM CHLORIDE 0.9% 100 ML IV SCH ×3 (05:04→22:08)
[2017-05-03] MEDS: LACTULOSE 20G/30ML UDC PO SCH ×2 (06:22→17:19)
[2017-05-03] MEDS: FUROSEMIDE 20MG/2ML VIAL IVP SCH ×2 (06:22→17:20)
[2017-05-03] MEDS: PANTOPRAZOLE 40MG DR TABLET PO SCH (06:22)
[2017-05-03 06:37] LABS: AMMONIA 63 uMol/L (<32)
[2017-05-03] MEDS: GUAIFENESIN/CODEINE 200-20MG/10ML UDC PO PRN ×3 (07:46→20:38)
[2017-05-03 07:56] LABS: HEMATOCRIT. 27.1 % (42.0-52.0); HEMOGLOBIN. 8.7 g/dL (14.0-18.0); MEAN CORPUSCULAR HEMOGLOBIN 28.7 pg (28.0-32.0); MEAN CORPUSCULAR VOLUME 89.6 fL (80.0-94.0); MEAN PLATELET VOLUME 7.7 fl (7.4-10.4); PLATELET 73 x1000/uL (130-400); RED BLOOD CELL COUNT 3.03 mill/uL (4.7-6.1)
[2017-05-03] MEDS: SPIRONOLACTONE 25MG TABLET PO SCH (08:41)
[2017-05-03] MEDS: FERROUS SULFATE 325MG TABLET PO SCH (08:41)
[2017-05-03] MEDS: AMLODIPINE 5MG TABLET PO SCH (08:41)
[2017-05-03] MEDS: DOCUSATE SODIUM 250MG CAPSULE PO SCH (08:41)
[2017-05-03] MEDS: BISACODYL 5MG TABLET PO PRN (12:37)
[2017-05-03 13:06] LABS: HLA CLASS 1 ANTIBODY Negative (Negative); IIb/IIIa ANTIBODY Negative (Negative); Ia/IIa ANTIBODY Negative (Negative); Ib/IX ANTIBODY Negative (Negative)
[2017-05-03 13:49] LABS: PLATELET ESTIMATE DECREASED
[2017-05-03] MEDS: DUTASTERIDE 0.5MG CAPSULE PO SCH (20:38)
[2017-05-03] MEDS: MIRTAZAPINE 15MG TABLET PO SCH (20:38)
[2017-05-04] VITALS (26 sets, daily range): BP systolic 128–168; BP diastolic 46–122
[2017-05-04] MEDS: IPRATROPIUM/ALBUTEROL 0.5-3(2.5)MG/3ML NEB HHN SCH ×4 (00:25→21:02)
[2017-05-04] MEDS: DIPHENHYDRAMINE 50MG/ML VIAL IV PRN ×5 (00:35→20:02)
[2017-05-04] MEDS: MORPHINE SULFATE 4 MG/ML CPJ (NOT FOR IM USE) IV PRN ×5 (00:35→20:03)
[2017-05-04] MEDS: GUAIFENESIN/CODEINE 200-20MG/10ML UDC PO PRN (02:57)
[2017-05-04] MEDS: AMPICILLIN 2,000 MG in SODIUM CHLORIDE 0.9% 100 ML IV SCH ×2 (05:25→14:49)
[2017-05-04] MEDS: LACTULOSE 20G/30ML UDC PO SCH ×2 (05:26→17:33)
[2017-05-04 05:51] LABS: HEMATOCRIT. 26.3 % (42.0-52.0); HEMOGLOBIN. 8.3 g/dL (14.0-18.0); MEAN CORPUSCULAR HEMOGLOBIN 28.5 pg (28.0-32.0); MEAN CORPUSCULAR VOLUME 90.5 fL (80.0-94.0); MEAN PLATELET VOLUME 7.5 fl (7.4-10.4); PLATELET 66 x1000/uL (130-400); RED CELL DISTRIBUTION WIDTH 19.7 % (11.6-14.6)
[2017-05-04 06:26] LABS: AMMONIA 85 uMol/L (<32)
[2017-05-04] MEDS: FUROSEMIDE 20MG/2ML VIAL IVP SCH ×2 (06:54→17:33)
[2017-05-04] MEDS: AMLODIPINE 5MG TABLET PO SCH (08:23)
[2017-05-04] MEDS: PANTOPRAZOLE 40MG DR TABLET PO SCH (08:23)
[2017-05-04] MEDS: FERROUS SULFATE 325MG TABLET PO SCH (08:23)
[2017-05-04] MEDS: SPIRONOLACTONE 25MG TABLET PO SCH (08:30)
[2017-05-04] MEDS: DOCUSATE SODIUM 250MG CAPSULE PO SCH (08:30)
[2017-05-04] MEDS ORDERED: MORPHINE SULFATE 4 MG/ML CPJ (NOT FOR IM USE) IV NR (10:15)
[2017-05-04] MEDS ORDERED: SODIUM POLYSTYRENE SULFONATE 15 G/60 ML BOT PO NR (10:15)
[2017-05-04] MEDS: MAGNESIUM/ALUMINUM HYDROXIDE/SIMETHICONE 30ML UDC PO PRN (12:24)
[2017-05-04 12:32] LABS: PLATELET ESTIMATE DECREASED
[2017-05-04] MEDS: MIRTAZAPINE 15MG TABLET PO SCH (20:03)
[2017-05-04] MEDS: DUTASTERIDE 0.5MG CAPSULE PO SCH (20:03)
[2017-05-04 21:13] LABS: INR 1.5; PARTIAL THROMBOPLASTIN TIME 32.2 sec (24.0-34.0); PROTHROMBIN TIME 15.4 sec
[2017-05-04] MEDS: BISACODYL 5MG TABLET PO PRN (21:48)
[2017-05-04] MEDS: ONDANSETRON HCL 4MG/2ML VIAL IV PRN (22:10)
[2017-05-05] VITALS (12 sets, daily range): BP systolic 108–153; BP diastolic 64–97
[2017-05-05] MEDS: AMPICILLIN 2,000 MG in SODIUM CHLORIDE 0.9% 100 ML IV SCH ×4 (00:06→21:10)
[2017-05-05] MEDS: DIPHENHYDRAMINE 50MG/ML VIAL IV PRN ×6 (00:35→21:10)
[2017-05-05] MEDS: MORPHINE SULFATE 4 MG/ML CPJ (NOT FOR IM USE) IV PRN ×6 (00:35→21:10)
[2017-05-05] MEDS: IPRATROPIUM/ALBUTEROL 0.5-3(2.5)MG/3ML NEB HHN SCH ×4 (01:40→20:07)
[2017-05-05] MEDS: LACTULOSE 20G/30ML UDC PO SCH ×3 (05:30→21:10)
[2017-05-05] MEDS: FUROSEMIDE 20MG/2ML VIAL IVP SCH ×2 (06:20→16:21)
[2017-05-05] MEDS: GUAIFENESIN/CODEINE 200-20MG/10ML UDC PO PRN ×2 (06:40→20:29)
[2017-05-05 06:51] LABS: HEMATOCRIT. 30.4 % (42.0-52.0); HEMOGLOBIN. 9.9 g/dL (14.0-18.0); MEAN CORPUSCULAR HEMOGLOBIN 28.7 pg (28.0-32.0); MEAN CORPUSCULAR VOLUME 88.3 fL (80.0-94.0); MEAN PLATELET VOLUME 7.4 fl (7.4-10.4); PLATELET 61 x1000/uL (130-400); RED BLOOD CELL COUNT 3.44 mill/uL (4.7-6.1); RED CELL DISTRIBUTION WIDTH 18.7 % (11.6-14.6)
[2017-05-05 07:52] LABS: CARBON DIOXIDE 28 mEq/L (21-32); CHLORIDE 104 mEq/L (98-107)
[2017-05-05] MEDS: DOCUSATE SODIUM 250MG CAPSULE PO SCH (08:14)
[2017-05-05] MEDS: PANTOPRAZOLE 40MG DR TABLET PO SCH (08:14)
[2017-05-05] MEDS: FERROUS SULFATE 325MG TABLET PO SCH (08:14)
[2017-05-05] MEDS: AMLODIPINE 5MG TABLET PO SCH (08:15)
[2017-05-05 13:47] LABS: PLATELET ESTIMATE DECREASED
[2017-05-05] MEDS ORDERED: NA PHOS,M-B/NA PHOS,DI-BA ENEMA 118ML PR NR (14:30)
[2017-05-05] MEDS: POLYETHYLENE GLYCOL 3350 (17GM) 1 DOSE PACK PO SCH (16:21)
[2017-05-05] MEDS: DUTASTERIDE 0.5MG CAPSULE PO SCH (20:29)
[2017-05-05] MEDS: MIRTAZAPINE 15MG TABLET PO SCH (20:29)
[2017-05-05] MEDS ORDERED: OXYCODONE HCL 10MG TABLET SR 12HR PO SCH (21:00)
[2017-05-06] VITALS (12 sets, daily range): BP systolic 130–153; BP diastolic 79–89
[2017-05-06] MEDS: MORPHINE SULFATE 4 MG/ML CPJ (NOT FOR IM USE) IV PRN ×6 (01:10→21:57)
[2017-05-06] MEDS: DIPHENHYDRAMINE 50MG/ML VIAL IV PRN ×6 (01:11→21:56)
[2017-05-06] MEDS: IPRATROPIUM/ALBUTEROL 0.5-3(2.5)MG/3ML NEB HHN SCH ×4 (01:51→19:45)
[2017-05-06] MEDS: GUAIFENESIN/CODEINE 200-20MG/10ML UDC PO PRN ×2 (04:32→11:38)
[2017-05-06] MEDS: AMPICILLIN 2,000 MG in SODIUM CHLORIDE 0.9% 100 ML IV SCH ×3 (05:15→22:07)
[2017-05-06] MEDS: LACTULOSE 20G/30ML UDC PO SCH ×4 (05:16→21:59)
[2017-05-06] MEDS: FUROSEMIDE 20MG/2ML VIAL IVP SCH ×2 (06:20→17:52)
[2017-05-06] MEDS: PANTOPRAZOLE 40MG DR TABLET PO SCH (06:22)
[2017-05-06 06:51] LABS: HEMATOCRIT. 26.3 % (42.0-52.0); HEMOGLOBIN. 8.6 g/dL (14.0-18.0); MEAN CORPUSCULAR HEMOGLOBIN 28.8 pg (28.0-32.0); MEAN CORPUSCULAR VOLUME 88.5 fL (80.0-94.0); MEAN PLATELET VOLUME 7.4 fl (7.4-10.4); PLATELET 58 x1000/uL (130-400); RED BLOOD CELL COUNT 2.97 mill/uL (4.7-6.1); RED CELL DISTRIBUTION WIDTH 18.7 % (11.6-14.6)
[2017-05-06 08:33] LABS: NUCLEATED RED BLOOD CELLS 1 /100 WBC
[2017-05-06 08:34] LABS: PLATELET ESTIMATE DECREASED
[2017-05-06] MEDS: FERROUS SULFATE 325MG TABLET PO SCH (09:23)
[2017-05-06] MEDS: AMLODIPINE 5MG TABLET PO SCH (09:23)
[2017-05-06] MEDS: POLYETHYLENE GLYCOL 3350 (17GM) 1 DOSE PACK PO SCH (09:23)
[2017-05-06] MEDS: DOCUSATE SODIUM 250MG CAPSULE PO SCH (09:23)
[2017-05-06] MEDS ORDERED: OXYCODONE HCL/ACETAMINOPHEN 5/325MG TABLET PO PRN (12:45)
[2017-05-06] MEDS: SIMETHICONE 80MG TABLET CHEW PO PRN (15:40)
[2017-05-06] MEDS: DUTASTERIDE 0.5MG CAPSULE PO SCH (21:55)
[2017-05-06] MEDS: MIRTAZAPINE 15MG TABLET PO SCH (21:56)
[2017-05-07] VITALS (10 sets, daily range): BP systolic 129–164; BP diastolic 73–93
[2017-05-07] MEDS: IPRATROPIUM/ALBUTEROL 0.5-3(2.5)MG/3ML NEB HHN SCH ×3 (01:57→20:19)
[2017-05-07] MEDS: DIPHENHYDRAMINE 50MG/ML VIAL IV PRN ×5 (01:59→22:34)
[2017-05-07] MEDS: GUAIFENESIN/CODEINE 200-20MG/10ML UDC PO PRN ×2 (01:59→10:12)
[2017-05-07] MEDS: MORPHINE SULFATE 4 MG/ML CPJ (NOT FOR IM USE) IV PRN ×3 (02:08→10:14)
[2017-05-07] MEDS: AMPICILLIN 2,000 MG in SODIUM CHLORIDE 0.9% 100 ML IV SCH ×3 (05:51→21:21)
[2017-05-07] MEDS: LACTULOSE 20G/30ML UDC PO SCH ×4 (06:00→21:21)
[2017-05-07 06:52] LABS: HEMATOCRIT. 30.2 % (42.0-52.0); HEMOGLOBIN. 9.7 g/dL (14.0-18.0); MEAN CORPUSCULAR HEMOGLOBIN 28.8 pg (28.0-32.0); MEAN CORPUSCULAR VOLUME 89.3 fL (80.0-94.0); PLATELET 70 x1000/uL (130-400); RED BLOOD CELL COUNT 3.38 mill/uL (4.7-6.1); RED CELL DISTRIBUTION WIDTH 18.7 % (11.6-14.6)
[2017-05-07 06:56] LABS: CARBON DIOXIDE 30 mEq/L (21-32); CHLORIDE 103 mEq/L (98-107)
[2017-05-07] MEDS: FUROSEMIDE 20MG/2ML VIAL IVP SCH ×2 (07:12→10:14)
[2017-05-07] MEDS: FERROUS SULFATE 325MG TABLET PO SCH (10:14)
[2017-05-07] MEDS: DOCUSATE SODIUM 250MG CAPSULE PO SCH (10:15)
[2017-05-07] MEDS: AMLODIPINE 5MG TABLET PO SCH (10:15)
[2017-05-07] MEDS: PANTOPRAZOLE 40MG DR TABLET PO SCH (10:15)
[2017-05-07] MEDS: POLYETHYLENE GLYCOL 3350 (17GM) 1 DOSE PACK PO SCH (10:22)
[2017-05-07] MEDS: SIMETHICONE 80MG TABLET CHEW PO PRN (11:03)
[2017-05-07 11:29] LABS: PLATELET ESTIMATE SLIGHTLY DECREASED
[2017-05-07] MEDS ORDERED: OXYCODONE HCL/ACETAMINOPHEN 5/325MG TABLET PO PRN (11:45)
[2017-05-07] MEDS ORDERED: NA PHOS,M-B/NA PHOS,DI-BA ENEMA 118ML PR NR (12:45)
[2017-05-07] MEDS: METOCLOPRAMIDE HCL 10MG/2ML VIAL IV SCH ×3 (14:01→23:07)
[2017-05-07] MEDS: GABAPENTIN 300MG CAPSULE PO SCH ×2 (14:02→21:21)
[2017-05-07] MEDS: MORPHINE SULFATE 2 MG/ML CPJ (NOT FOR IM USE) IV PRN ×3 (14:15→22:34)
[2017-05-07] MEDS: DUTASTERIDE 0.5MG CAPSULE PO SCH (21:21)
[2017-05-07] MEDS: MIRTAZAPINE 15MG TABLET PO SCH (21:21)
[2017-05-08] VITALS (10 sets, daily range): BP systolic 146–173; BP diastolic 70–100
[2017-05-08] MEDS: IPRATROPIUM/ALBUTEROL 0.5-3(2.5)MG/3ML NEB HHN SCH ×3 (02:13→14:02)
[2017-05-08] MEDS: DIPHENHYDRAMINE 50MG/ML VIAL IV PRN ×4 (02:51→14:27)
[2017-05-08] MEDS: MORPHINE SULFATE 2 MG/ML CPJ (NOT FOR IM USE) IV PRN ×4 (02:51→14:21)
[2017-05-08] MEDS: METOCLOPRAMIDE HCL 10MG/2ML VIAL IV SCH ×2 (06:08→14:15)
[2017-05-08] MEDS: LACTULOSE 20G/30ML UDC PO SCH ×2 (06:08→14:15)
[2017-05-08] MEDS: GABAPENTIN 300MG CAPSULE PO SCH ×2 (06:08→14:16)
[2017-05-08] MEDS: AMPICILLIN 2,000 MG in SODIUM CHLORIDE 0.9% 100 ML IV SCH ×2 (06:09→14:15)
[2017-05-08] MEDS: ONDANSETRON HCL 4MG/2ML VIAL IV PRN (08:17)
[2017-05-08] MEDS: FERROUS SULFATE 325MG TABLET PO SCH (08:30)
[2017-05-08] MEDS: PANTOPRAZOLE 40MG DR TABLET PO SCH (08:30)
[2017-05-08] MEDS: DOCUSATE SODIUM 250MG CAPSULE PO SCH (08:30)
[2017-05-08] MEDS: FUROSEMIDE 20MG/2ML VIAL IVP SCH (08:30)
[2017-05-08] MEDS: AMLODIPINE 5MG TABLET PO SCH (08:31)
[2017-05-08] MEDS: POLYETHYLENE GLYCOL 3350 (17GM) 1 DOSE PACK PO SCH (08:39)
== END 2017-05-08 16:32 | DRG 871 ==
LOC: ER 01:21 → 5EST 03:11
PROVIDERS: ADMIT Hospitalist; ATTEND Hospitalist
PROC: 30233N1 Transfusion of Nonautologous Red Blood Cells into Peripheral Vein, Percutaneous Approach (ICD-10-PCS; principal; 2017-04-19)
PROC: 02HV33Z Insertion of Infusion Device into Superior Vena Cava, Percutaneous Approach (ICD-10-PCS; 2017-04-23)
PROC: B548ZZA Ultrasonography of Superior Vena Cava, Guidance (ICD-10-PCS; 2017-04-23)
PROC: 0W9G3ZX Drainage of Peritoneal Cavity, Percutaneous Approach, Diagnostic (ICD-10-PCS; 2017-04-24)
PROC: 0W9G3ZX Drainage of Peritoneal Cavity, Percutaneous Approach, Diagnostic (ICD-10-PCS; 2017-04-28)
DX: A41.81 Sepsis due to Enterococcus (principal); J69.0 Pneumonitis due to inhalation of food and vomit; E43 Unspecified severe protein-calorie malnutrition; I50.33 Acute on chronic diastolic (congestive) heart failure; J96.00 Acute respiratory failure, unspecified whether with hypoxia or hypercapnia; N17.0 Acute kidney failure with tubular necrosis; D62 Acute posthemorrhagic anemia; I13.0 Hypertensive heart and chronic kidney disease with heart failure and stage 1 through stage 4 chronic kidney disease, or unspecified chronic kidney disease; N30.41 Irradiation cystitis with hematuria; R18.8 Other ascites; J44.1 Chronic obstructive pulmonary disease with (acute) exacerbation; J44.0 Chronic obstructive pulmonary disease with (acute) lower respiratory infection; F18.90 Inhalant use, unspecified, uncomplicated; D69.6 Thrombocytopenia, unspecified; N18.9 Chronic kidney disease, unspecified; J20.9 Acute bronchitis, unspecified; K62.7 Radiation proctitis; Z96.642 Presence of left artificial hip joint; K73.2 Chronic active hepatitis, not elsewhere classified; K72.90 Hepatic failure, unspecified without coma; K74.60 Unspecified cirrhosis of liver; Y84.2 Radiological procedure and radiotherapy as the cause of abnormal reaction of the patient, or of later complication, without mention of misadventure at the time of the procedure; Z80.42 Family history of malignant neoplasm of prostate; Z92.3 Personal history of irradiation; Z68.35 Body mass index [BMI] 35.0-35.9, adult; Z79.82 Long term (current) use of aspirin; Z79.899 Other long term (current) drug therapy; I25.2 Old myocardial infarction; Z85.46 Personal history of malignant neoplasm of prostate
CPT/HCPCS: 36415; 36430; 36569; 49083; 71010; 71275; 74000; 74176; 76705; 76937; 80048; 80053; 80061; 81001; 82040; 82140; 82270; 82550; 82553; 82784; 83036; 83605; 83615; 83690; 83735; 83880; 84153; 84157; 84439; 84443; 84484; 85025; 85379; 85610; 85651; 85730; 86022; 86140; 86334; 86705; 86709; 86803; 86850; 86900; 86920; 87040; 87070; 87077; 87086; 87186; 87205; 87340; 88108; 88312; 89050; 90732; 93005; 93306; 93970; 94640; 94664; 96365; 96366; 96368; 96375; 97116; 97162; 97530; 99291; A4216; C1725; C1893; J0290; J1170; J1200; J1940; J1956; J2060; J2270; J2405; J2543; J2765; J2930; J3370; J3475; J3490; J7030; J7040; J7050; J7060; J7611; J7620; J7626; P9016; P9047; Q9967; A4315